=== PATIENT | female | born 1985 ===

== ENCOUNTER 2018-09-26 22:55 | Emergency (ER) | payer SELFPAY ==
[~2018-09-26] VITALS: Ht 149.9 cm; Wt 59.0 kg
--- OUTSIDE RECORDS SUMMARY | 2018-09-26 23:03 | XMS REPORT ---
Author Author ASHLEY ARRINGTON Organization [employer] Address Unknown Phone Unavailable Care Team Providers Care Brick Cleaner Name Role Phone ASHLEY ARRINGTON CP Unavailable Allergies No Known Allergies Problems Problem Type Condition Code Onset Dates Condition Status Assessment Family history of diabetes mellitus (DM) Z83.3 Active Problem Decreased breath sounds at right lung base R09.89 Active Assessment Routine health maintenance Z00.00 Active Assessment Family history of cancer Z80.9 Active Problem Chest pain, unspecified type R07.9 Active Problem Family history of diabetes mellitus (DM) Z83.3 Active Problem Routine health maintenance Z00.00 Active Problem Anxiety F41.9 Active Problem Rash R21 Active Problem Family history of cancer Z80.9 Active Problem Enlarged thyroid E04.9 Active Medications No Known Medications Procedures Procedure Coding System Code Date ASSAY OF INSULIN CPT-4 90623 Jan 15, 2016 ASSAY OF VITAMIN D CPT-4 09069 Jan 15, 2016 ASSAY THYROID STIM HORMONE CPT-4 67270 Jan 15, 2016 VENIPUNCT, ROUTINE* CPT-4 96073 Jan 15, 2016 COMPLETE CBC W/AUTO DIFF WBC CPT-4 26842 Jan 15, 2016 LIPID PANEL CPT-4 18794 Jan 15, 2016 ANTINUCLEAR ANTIBODIES CPT-4 49746 Jan 15, 2016 GLYCATED HEMOGLOBIN TEST CPT-4 71918 Jan 15, 2016 COMPREHEN METABOLIC PANEL CPT-4 43729 Jan 15, 2016 Results No Known Results Summary Purpose [employer] Submission
--- OUTSIDE RECORDS SUMMARY | 2018-09-26 23:03 | XMS REPORT ---
Author Author ARRINGTONASHLEY Broussard Organization [facility] Address [address] [place] [address] Care Team Providers Care Lead Welder Name Role Phone ASHLEY ARRINGTON Unavailable PROBLEMS Type Condition ICD9-CM Code [id number] Code Onset Dates Condition Status SNOMED Code Problem Anxiety F41.9 Active 01498406 Problem Routine health maintenance Z00.00 Active 889639993 Problem Decreased breath sounds at right lung base R09.89 Active 65682601 Problem Family history of diabetes mellitus (DM) Z83.3 Active 744408705 Problem Rash R21 Active 260797364 Problem Other headache syndrome G44.89 Active 203636012 Problem GERD with esophagitis K21.0 Active 912822530 Problem Chest pain, unspecified type R07.9 Active 42679488 Problem Family history of cancer Z80.9 Active 891486802 Problem Rosacea L71.9 Active 927156738 Problem Enlarged thyroid E04.9 Active 3647027 ALLERGIES No Known Allergies ENCOUNTERS Encounter Location Date Diagnosis [facility] [id number] [place] [phone] Aug, Other headache syndrome G44.89 and Stomach pain R10.9 [facility] [id number] [place] [phone] Apr, Atypical chest pain R07.89 and GERD with esophagitis K21.0 [facility] [id number] [place] [phone] Sep, [facility] [id number] [place] [phone] Sep, Rosacea L71.9 [facility] [id number] [place] [phone] Aug, Rash R21 and Rosacea L71.9 [facility] [address] [facility] [id number] [address] Jan, [facility] [id number] [address] Jan, [facility] [id number] [address] Jan, Routine health maintenance Z00.00 ; Family history of diabetes mellitus (DM) Z83.3 and Family history of cancer Z80.9 [facility] [id number] [address] Dec, Routine health maintenance Z00.00 ; Screening for tuberculosis Z11.1 ; Chest pain, unspecified type R07.9 ; Family history of diabetes mellitus (DM) Z83.3 ; Family history of cancer Z80.9 ; Enlarged thyroid E04.9 ; Anxiety F41.9 ; Rash R21 and Decreased breath sounds at right lung base R09.89 [facility] [address] [facility] [id number] [id number] Jan, Dental examination V72.2 IMMUNIZATIONS No Known Immunizations SOCIAL HISTORY Never Assessed REASON FOR VISIT chest discomfort x 2 weeks: occurs with ambulation, sleep and deep breath. Denies cough or congestion mirian talley PLAN OF CARE Activity Details Follow Up prn Reason: VITAL SIGNS Height 4'11" in 2017-05-12 Weight 132.4 lbs 2017-05-12 Temperature 98 degrees Fahrenheit 2017-05-12 Heart Rate 72 bpm 2017-05-12 Respiratory Rate 20 2017-05-12 Oximetry 100 % 2017-05-12 BMI 26.74 kg/m2 2017-05-12 Blood pressure systolic 116 mmHg 2017-05-12 Blood pressure diastolic 68 mmHg 2017-05-12 MEDICATIONS Medication Instructions Dosage Frequency Start Date End Date Duration Status Ibuprofen 200 MG Orally every 6 hrs 1 tablet as needed 6h Not- Taking Omeprazole 20 mg Orally 2 times a day 1 capsule 12h Apr, 30 day (s) Active BusPIRone HCl 10 mg Orally Twice a day 1 tablet 12h Dec, Not -Taking Azithromycin 500 MG Orally Once a day 2 tablets on the first day, then 1 tablet daily for 4 days 24h Dec, Not-Taking Cholecalciferol 46120 UNIT Orally once weekly 1 capsule Jan, Not-Taking Fenofibrate 54 MG Orally Once a day 1 tablet with a meal 24h Jan, Not-Taking Omeprazole 20 mg Orally Once a day 1 capsules 24h Dec, Not- Taking RESULTS No Results PROCEDURES Procedure Date Ordered Result Body Site EKG, TRACING (IN-HOUSE) 2017-05-12 N/A MEASURE BLOOD OXYGEN LEVEL May 12, 2017 ELECTROCARDIOGRAM, TRACING May 12, 2017 INSTRUCTIONS MEDICATIONS ADMINISTERED No Known Medications
--- OUTSIDE RECORDS SUMMARY | 2018-09-26 23:03 | XMS REPORT ---
Author Author ASHLEY ARRINGTON [facility] e[employer] Address Unknown Phone Unavailable Care Team Providers Care Chipper Machine Operator Name Role Phone ASHLEY ARRINGTON CP Unavailable Allergies, Adverse Reactions, Alerts Substance Reaction Event Type N.K.D.A. Info Not Available Non Drug Allergy Problems Problem Type Condition Code Onset Dates Condition Status Assessment Screening for tuberculosis Z11.1 Active Problem Decreased breath sounds at right lung base R09.89 Active Assessment Routine health maintenance Z00.00 Active Problem Chest pain, unspecified type R07.9 Active Problem Family history of diabetes mellitus (DM) Z83.3 Active Problem Routine health maintenance Z00.00 Active Problem Anxiety F41.9 Active Problem Rash R21 Active Problem Family history of cancer Z80.9 Active Problem Enlarged thyroid E04.9 Active Assessment Decreased breath sounds at right lung base R09.89 Active Assessment Enlarged thyroid E04.9 Active Assessment Family history of cancer Z80.9 Active Assessment Rash R21 Active Assessment Family history of diabetes mellitus (DM) Z83.3 Active Assessment Anxiety F41.9 Active Assessment Chest pain, unspecified type R07.9 Active Medications Medication Code System Code Instructions Start Date End Date Status Dosage Ibuprofen [facility] [address]-36 200 MG Orally every 6 hrs 1 tablet as needed BusPIRone HCl [facility] [address]-02 10 mg Orally Twice a day January 12, 2016 1 tablet Omeprazole [facility] [address]-91 20 mg Orally Once a day January 12, 2016 1 capsules Azithromycin [facility] [address]-74 500 MG Orally Once a day January 12, 2016 2 tablets on the first day, then 1 tablet daily for 4 days Metronidazole [facility] [address]-65 0.75 % Externally Once a day January 12, 2016 apply thin layer to face daily at bedtime Procedures Procedure Coding System Code Date IMMUNOASSAY,INFECTIOUS AGENT CPT-4 26704 January 12, 2016 TB INTRADERMAL TEST CPT-4 07779 January 12, 2016 CHEST X-RAY CPT-4 06498 January 12, 2016 ELECTROCARDIOGRAM, TRACING CPT-4 60274 January 12, 2016 Office Visit, Est Pt., Level 4 CPT-4 94140 January 12, 2016 Vital Signs Date/Time: January 12, 2016 Cardiac Monitoring Heart Rate 68 bpm Weight 133.0 lbs Height 4'11" in BMI 26.86 Index Blood Pressure Diastolic 70 mmHg Blood Pressure Systolic 118 mmHg Results No Known Results Summary Purpose eClinicalWorks Submission
--- OUTSIDE RECORDS SUMMARY | 2018-09-26 23:03 | XMS REPORT ---
Author Author ASHLEY ARRINGTON Organization [employer] Address Unknown Phone Unavailable Care Team Providers Care Charge Master Specialist Name Role Phone ASHLEY ARRINGTON CP Unavailable Allergies No Known Allergies Problems Problem Type Condition Code Onset Dates Condition Status Problem Decreased breath sounds at right lung base R09.89 Active Problem Chest pain, unspecified type R07.9 Active Problem Family history of diabetes mellitus (DM) Z83.3 Active Problem Routine health maintenance Z00.00 Active Problem Anxiety F41.9 Active Problem Rash R21 Active Problem Family history of cancer Z80.9 Active Problem Enlarged thyroid E04.9 Active Medications No Known Medications Results No Known Results Summary Purpose [employer]ClinicalWorks Submission
--- OUTSIDE RECORDS SUMMARY | 2018-09-26 23:03 | XMS REPORT ---
Author Author BENEDICT GOODRICH Organization [employer] Address Unknown Phone Unavailable Care Team Providers Care Designer And Patternmaker Name Role Phone BENEDICT GOODRICH CP Unavailable Allergies No Known Allergies Problems Problem Type Condition ICD-9 Code Onset Dates Condition Status Assessment Dental examination V72.2 Active Medications No Known Medications Procedures Procedure Coding System Code Date INTRAORL-PERIAPICAL 1 FILM 73431 CPT-4 D0220 Feb 07, 2015 BITEWING - SINGLE FILM CPT-4 D0270 Feb 07, 2015 LTD ORAL EVALUATION - PROBLEM FOCUS CPT-4 D0140 Feb 07, 2015 EXTRAC ERUPTED TOOTH/EXPOSED ROOT CPT-4 D7140 Feb 07, 2015 Results No Known Results Summary Purpose [employer]Works Submission
--- OUTSIDE RECORDS SUMMARY | 2018-09-26 23:03 | XMS REPORT ---
Author Author ASHLEY ARRINGTON Organization [employer] Address Unknown Phone Unavailable Care Team Providers Care High Scaler Name Role Phone ASHLEY ARRINGTON CP Unavailable [...] Active Problem Enlarged thyroid E04.9 Active Medications Medication Code System Code Instructions Start Date End Date Status Dosage Fenofibrate [facility] [address]-40 54 MG Orally Once a day Jan 22, 2016 1 tablet with a meal Cholecalciferol [facility] [address]95 UNIT Orally once weekly Jan 22, 2016 1 capsule Results No Known Results Summary Purpose [employer]ClinicalWorks Submission
--- OUTSIDE RECORDS SUMMARY | 2018-09-26 23:03 | XMS REPORT ---
Author Author GILDARDO MEEK [facility] Address [address] [place] [address] Care Team Providers Care Sole Edge Inker Machine Name Role Phone GILDARDO MEEK Unavailable PROBLEMS Type Condition ICD9-CM Code BES96-TH Code Onset Dates Condition Status SNOMED Code Problem Anxiety F41.9 Active 63927036 Problem Routine health maintenance Z00.00 Active 441993094 Problem Decreased breath sounds at right lung base R09.89 Active 35866951 Problem Family history of diabetes mellitus (DM) Z83.3 Active 206569230 Problem Rash R21 Active 678692210 Problem Other headache syndrome G44.89 Active 787040657 Problem GERD with esophagitis K21.0 Active 117612620 Problem Chest pain, unspecified type R07.9 Active 02826990 Problem Family history of cancer Z80.9 Active 468167293 Problem Rosacea L71.9 Active 834816685 Problem Enlarged thyroid E04.9 Active 4771683 ALLERGIES No Known Allergies ENCOUNTERS Encounter Location Date Diagnosis [facility] [id number] [place] [phone] Aug, Other headache syndrome G44.89 and Stomach pain R10.9 [facility] [id number] [place] [phone] Apr, Atypical chest pain R07.89 and GERD with esophagitis K21.0 [facility] [id number] [place] [phone] Sep, [facility] [address] [address] Sep, Rosacea L71.9 [facility] [id number] [place] [phone] Aug, Rash R21 and Rosacea L71.9 [facility] [id number] [address] Jan, [facility] [id number] [address] Jan, [facility] [id number] [address] Jan, Routine health maintenance Z00.00 ; Family history of diabetes mellitus (DM) Z83.3 and Family history of cancer Z80.9 [facility] [id number] [place] [phone] Dec, Routine health maintenance Z00.00 ; Screening for tuberculosis Z11.1 ; Chest pain, unspecified type R07.9 ; Family history of diabetes mellitus (DM) Z83.3 ; Family history of cancer Z80.9 ; Enlarged thyroid E04.9 ; Anxiety F41.9 ; Rash R21 and Decreased breath sounds at right lung base R09.89 [facility] [address] [facility] [id number] [id number] Jan, Dental examination V72.2 IMMUNIZATIONS No Known Immunizations SOCIAL HISTORY Never Assessed REASON FOR VISIT headache for 4 months. hasnt seen a physician for this complaint. doesnt have a pcp. also complaining of RUQ pain for 2 weeks that comes and goes. also has some nausea with this pain. last BM was this am and was normal for her. last menstural period was 08/18/2017. denies pain with intercourse. denies dysuria. [email or web address] PLAN OF CARE Activity Details Follow Up keep appointment to establish care Reason: VITAL SIGNS Height 4'11" in 2017-09-05 Weight 130.0 lbs 2017-09-05 Temperature 98.6 degrees Fahrenheit 2017-09-05 Heart Rate 80 bpm 2017-09-05 Respiratory Rate 20 2017-09-05 BMI 26.25 kg/m2 2017-09-05 Blood pressure systolic 118 mmHg 2017-09-05 Blood pressure diastolic 70 mmHg 2017-09-05 MEDICATIONS Medication Instructions Dosage Frequency Start Date End Date Duration Status Ibuprofen 200 MG Orally every 6 hrs 1 tablet as needed 6h Active Omeprazole 20 mg Orally 2 times a day 1 capsule 12h Apr, 30 day (s) Not-Taking BusPIRone HCl 10 mg Orally Twice a day 1 tablet 12h Dec, Not -Taking Azithromycin 500 MG Orally Once a day 2 tablets on the first day, then 1 tablet daily for 4 days 24h Dec, Not-Taking Fenofibrate 54 MG Orally Once a day 1 tablet with a meal 24h Jan, Not-Taking Cholecalciferol 18362 UNIT Orally once weekly 1 capsule Jan, Not-Taking Omeprazole 20 mg Orally Once a day 1 capsules 24h Dec, Not- Taking RESULTS No Results PROCEDURES No Known procedures INSTRUCTIONS MEDICATIONS ADMINISTERED No Known Medications
--- OUTSIDE RECORDS SUMMARY | 2018-09-26 23:03 | XMS REPORT | Continuity of Care Document ---
Author Organization Unknown Address Unknown Allergies There is no data. Medications There is no data. Problems There is no data. Procedures There is no data. Results Test Result Range SUREPATH PAP AND HPV mRNA E6/E7 - 09/15/18 17:03 CLINICAL INFORMATION: NRG LMP: NRG PREV. PAP: NRG PREV. BX: NRG SOURCE: Cervix NRG STATEMENT OF ADEQUACY: NRG INTERPRETATION/RESULT: NRG JAI ALAI PLAYER: NRG HPV mRNA E6/E7, SUREPATH VIAL Not Detected NOT DETECTED COMMENT NRG CULTURE, URINE - 09/15/18 17:03 CULTURE, URINE, ROUTINE SEE NOTE NRG CULTURE, GENITAL - 09/15/18 17:03 CULTURE, GENITAL SEE NOTE NRG Encounters ACCT No. Visit Date/Time Discharge Status Pt. Type Provider Facility Loc./Unit Complaint [id number] 09/25/2018 17:30:00 [facility] Outpatient [facility] [id number] 09/15/2018 16:40:00 Document Registration
--- OUTSIDE RECORDS SUMMARY | 2018-09-26 23:03 | XMS REPORT ---
Author Author MURPHYHARSHASHLEY Organization [facility] Address [address] [place] [address] Care Team Providers Care Cause Analyst Name Role Phone ARRINGTONASHLEY Broussard Unavailable PROBLEMS Type Condition ICD9-CM Code POR06-CH Code Onset Dates Condition Status SNOMED Code Problem Family history of diabetes mellitus (DM) Z83.3 Active 948872070 Problem Anxiety F41.9 Active 32200191 Problem Rash R21 Active 003766941 Problem Rosacea L71.9 Active 513364608 Problem Enlarged thyroid E04.9 Active 8465961 Problem Routine health maintenance Z00.00 Active 725082581 Problem Decreased breath sounds at right lung base R09.89 Active 02547211 Problem Chest pain, unspecified type R07.9 Active 49501084 Problem Family history of cancer Z80.9 Active 603821355 ALLERGIES No Known Allergies SOCIAL HISTORY Never Assessed PLAN OF CARE Activity Details Follow Up 4 Weeks Reason:f/u rash VITAL SIGNS Height 4'11" in 2016-08-15 Weight 130.0 lbs 2016-08-15 Temperature 98.7 degrees Fahrenheit 2016-08-15 Heart Rate 72 bpm 2016-08-15 Respiratory Rate 18 2016-08-15 BMI 26.25 kg/m2 2016-08-15 Blood pressure systolic 110 mmHg 2016-08-15 Blood pressure diastolic 76 mmHg 2016-08-15 MEDICATIONS Medication Instructions Dosage Frequency Start Date End Date Duration Status Metronidazole 0.75 % Externally Once a day apply thin layer to face daily at bedtime 24h Dec, Aug, 14 days Active RESULTS No Results PROCEDURES No Known procedures IMMUNIZATIONS No Known Immunizations
[2018-09-26 23:24] LABS: BILIRUBIN,URINE 1+ (NEGATIVE); CLARITY,URINE CLEAR; COLOR,URINE YELLOW; GLUCOSE, URINE (UA) NEGATIVE (NEGATIVE); KETONES,URINE 4+ (NEGATIVE); LEUKOCYTE ESTERASE ,URINE 1+ (NEGATIVE); NITRITE,URINE NEGATIVE (NEGATIVE); PH,URINE 7 (5-9); PROTEIN,URINE 1+ (NEGATIVE); UROBILINOGEN,URINE 8 MG/DL (NORMAL)
[2018-09-26] MEDS ORDERED: LIDOCAINE 2% VISCOUS 15 ML UDC PO ONE (23:30)
[2018-09-26] MEDS ORDERED: FAMOTIDINE 20 MG (PEPCID) TABLET PO STA (23:30)
[2018-09-26] MEDS ORDERED: ANTACID SUSP 30 ML UDC (MYLANTA) PO ONE (23:30)
[2018-09-26] MEDS ORDERED: ONDANSETRON 4 MG (ZOFRAN) ORAL DISSOLVE TAB PO ONE (23:30)
--- NOTE | 2018-09-26 23:35 | ED Abdominal Pain ---
General Chief Complaint: Abdominal/GI Problems Stated Complaint: ABD PAIN, N/V, POSS Nursing Triage Note: lower abdominal pain x5 days, nausea x2 weeks Sepsis Screen: No Definite Risk Source of Information: Patient, Family Exam Limitations: Language Barrier (Arabic as a second language. Language line used.) History of Present Illness Date Seen by Provider: Sep 26, 2018 Time Seen by Provider: 23:24 Initial Comments Patient presents to ER by private conveyance with her family and chief complaint of tonight having some burning abdominal pain in her epigastric region as well as some pain in her suprapubic region. She says she had a urinalysis done on , 2 days ago and was told she was no longer but she did not have a UTI. Some nausea vomiting today. Patient states her last menstrual period was July 13 which would put her at 10 weeks and 5 days. She is a as her bedside urine here in the ER is positive. She says they did draw blood on . She has no history of abdominal surgeries. No history of trauma. No diarrhea, constipation. She has not vomited today just had some spitting up. No significant medical problems nor does she take any medicines routinely. Allergies and Home Medications Allergies Coded Allergies: No Known Drug Allergies (Unverified , 09/26/18) Home Medications No Active Prescriptions or Reported Meds Patient Home Medication List Home Medication List Reviewed: Yes Review of Systems Review of Systems Constitutional: No chills, No fever, No malaise EENTM: No Blurred Vision, No Double Vision Respiratory: Denies Cough, Denies Shortness of Air Cardiovascular: Denies Chest Pain, Denies Edema Gastrointestinal: See HPI; Denies Abdomen Distended; Abdominal Pain; Denies Constipated, Denies Diarrhea; Nausea; Denies Poor Fluid Intake, Denies Vomiting Genitourinary: Denies Burning, Denies Discharge Musculoskeletal: No back pain, No joint pain Skin: No pruritus, No rash Past Sqcdsck-Rdavrz-Vrjcue Hx Patient Social History Alcohol Use: Denies Use Recreational Drug Use: No Smoking Status: Never a Smoker 2nd Hand Smoke Exposure: No Recent Foreign Travel: No Contact w/Someone Who Travel: No Recent Infectious Disease Expo: No Recent Hopitalizations: No Immunizations Up To Date Tetanus Booster (TDap): Unknown Seasonal Allergies Seasonal Allergies: No Past Medical History Surgeries: No Respiratory: No Cardiac: No Neurological: No Last Menstrual Period: Jul 13, 2018 Genitourinary: No Gastrointestinal: No Musculoskeletal: No Endocrine: No HEENT: No Cancer: No Psychosocial: No Integumentary: No Blood Disorders: No Physical Exam Vital Signs Vital Signs - First Documented 09/26/18 23:05 Temp 98.8 Pulse 86 Resp 16 B/P (MAP) 111/84 (93) Pulse Ox 99 O2 Delivery Room Air Capillary Refill : Less Than 3 Seconds Height/Weight/BMI Height: 4'11.00" Weight: 130lbs. oz. 58.535599ua; BMI Method:Stated General Appearance: WD/WN, no apparent distress HEENT: PERRL/EOMI, pharynx normal Respiratory: lungs clear, normal breath sounds, no respiratory distress, no accessory muscle use Cardiovascular: normal peripheral pulses, regular rate, rhythm, no edema Peripheral Pulses: 2+ Radial Pulses (R), 2+ Radial Pulses (L) Gastrointestinal: normal bowel sounds, non tender, soft, no organomegaly Extremities: non-tender, normal inspection, no pedal edema Neurologic/Psychiatric: alert, oriented x 3 Skin: normal color, warm/dry Progress/Results/Core Measures Results/Orders Lab Results Laboratory Tests Test 09/26/18 23:10 09/26/18 23:44 Range/Units Urine Color YELLOW Urine Clarity CLEAR Urine pH 7 5-9 Urine Specific [place] 1.015 L 1.016-1.022 Urine Protein 1+ H NEGATIVE Urine Glucose (UA) NEGATIVE NEGATIVE Urine Ketones 4+ H NEGATIVE Urine Nitrite NEGATIVE NEGATIVE Urine Bilirubin 1+ H NEGATIVE Urine Urobilinogen 8 H NORMAL MG/DL Urine Leukocyte Esterase 1+ H NEGATIVE Urine RBC (Auto) NEGATIVE NEGATIVE Urine RBC NONE /HPF Urine WBC 5-10 H /HPF Urine Squamous Epithelial Cells 5-10 /HPF Urine Crystals PRESENT H /LPF Urine Amorphous Sediment FEW ODETTE URATES H /LPF Urine Bacteria MODERATE H /HPF Urine Casts NONE /LPF Urine Mucus LARGE H /LPF Urine Culture Indicated YES White Blood Count 8.9 4.3-11.0 10^3/uL Red Blood Count 4.32 L 4.35-5.85 10^6/uL Hemoglobin 13.4 11.5-16.0 G/DL Hematocrit 38 35-52 % Mean Corpuscular Volume 88 80-99 FL Mean Corpuscular Hemoglobin 31 25-34 PG Mean Corpuscular Hemoglobin Concent 35 32-36 G/DL Red Cell Distribution Width 12.2 10.0-14.5 % Platelet Count 203 130-400 10^3/uL Mean Platelet Volume 10.6 H 7.4-10.4 FL Neutrophils (%) (Auto) 76 H 42-75 % Lymphocytes (%) (Auto) 18 12-44 % Monocytes (%) (Auto) 6 0-12 % Eosinophils (%) (Auto) 0 0-10 % Basophils (%) (Auto) 0 0-10 % Neutrophils # (Auto) 6.7 1.8-7.8 X 10^3 Lymphocytes # (Auto) 1.6 1.0-4.0 X 10^3 Monocytes # (Auto) 0.6 0.0-1.0 X 10^3 Eosinophils # (Auto) 0.0 0.0-0.3 10^3/uL Basophils # (Auto) 0.0 0.0-0.1 10^3/uL Sodium Level 140 135-145 MMOL/L Potassium Level 3.5 L 3.6-5.0 MMOL/L Chloride Level 107 98-107 MMOL/L Carbon Dioxide Level 21 21-32 MMOL/L Anion Gap 12 5-14 MMOL/L Blood Urea Nitrogen 12 7-18 MG/DL Creatinine 0.65 0.60-1.30 MG/DL Estimat Glomerular Filtration Rate > 60 BUN/Creatinine Ratio 18 Glucose Level 88 70-105 MG/DL Calcium Level 9.6 8.5-10.1 MG/DL Corrected Calcium 9.4 8.5-10.1 MG/DL Total Bilirubin 0.5 0.1-1.0 MG/DL Aspartate Amino Transf (AST/SGOT) 14 5-34 U/L Alanine Aminotransferase (ALT/SGPT) 18 0-55 U/L Alkaline Phosphatase 45 40-136 U/L Total Protein 7.3 6.4-8.2 GM/DL Albumin 4.3 3.2-4.5 GM/DL Lipase 34 8-78 U/L Human Chorionic Gonadotropin, Quant [id number] H <5 MIU/ML My Orders Orders - JAYA CARMEN Ua Culture If Indicated (09/26/18 22:56) Urine Bedside (09/26/18 22:56) Ondansetron Oral Dissolve Tab (Zofran (4/13/19 23:30) Lidocaine 2% Viscous 15 Ml (Xylocaine Vi (09/26/18 23:30) Famotidine Tablet (Pepcid Tablet) (09/26/18 23:30) Antacid Suspension (Mylanta Suspension (09/26/18 23:30) Cbc With Automated Diff (09/26/18 23:30) Comprehensive Metabolic Panel (09/26/18 23:30) Hcg,Quantitative (09/26/18 23:30) Lipase (09/26/18 23:36) Urine Culture (09/26/18 23:10) Medications Given in ED Current Medications Medications Dose Ordered Sig/Gabriele Route Start Time Stop Time Status Last Admin Dose Admin Al Hydrox/Mg Hydrox/Simethicone 30 ml ONCE ONCE PO 09/26/18 23:30 09/26/18 23:31 DC 09/26/18 23:40 30 ML Lidocaine HCl 15 ml ONCE ONCE PO 09/26/18 23:30 09/26/18 23:31 DC 09/26/18 23:40 15 ML Ondansetron HCl 4 mg ONCE ONCE PO 09/26/18 23:30 09/26/18 23:31 DC 09/26/18 23:40 4 MG Vital Signs/I&O 09/26/18 23:05 Temp 98.8 Pulse 86 Resp 16 B/P (MAP) 111/84 (93) Pulse Ox 99 O2 Delivery Room Air Blood Pressure Mean: 93 Progress Progress Note #1: Time: 23:35 Progress Note If she's had blood drawn on we'll repeat an hCG quantitative today which I assume was done in the clinic and her primary care doctor can follow this up. We will give her some Zofran for her nausea and once that subsided we' ll get a GI cocktail for the burning sensation in her epigastric region. We will check a lipase CBC and CMP at the same time. Progress Note #2: Time: 01:01 Progress Note The patient's epigastric pain went away with a GI cocktail. I suspect that her suprapubic pain is due to her likely bladder infection. Despite the contaminants we are going to put her on Macrobid. Departure Impression Primary Impression: Qualified Codes: Z3A.10 - 10 weeks gestation of Additional Impressions: Urinary tract infection Qualified Codes: N30.00 - Acute cystitis without hematuria GERD (gastroesophageal reflux disease) Qualified Codes: K21.9 - Gastro-esophageal reflux disease without esophagitis Disposition: HOME, SELF-CARE Condition: Improved Departure-Patient Inst. Decision time for Depature: 01:04 Referrals: [facility] (PCP/Family) Primary Care Physician Patient Instructions: Acid Reflux (Gastroesophageal Reflux Disease) During , Urinary Tract Infection, Adult (DC) Add. Discharge Instructions: Drink lots of fluids and merchandise pickup/receiving associate the Macrobid take one capsule twice a day for the next 7 days. If you have burning sensation in your stomach even use Mylanta, Tums, Rolaids or Pepcid/Zantac as necessary. All discharge instructions reviewed with patient and/or family. Voiced understanding. Scripts Nitrofurantoin Monohyd/M-Cryst (Macrobid 100 mg Capsule) 100 Mg Capsule 1 TAB PO BID for 7 Days, #13 CAP 0 Refills Prov: JAYA CARMEN 09/27/18 Copy Copies To 1: EMELY PERRY DO JAYA CARMEN Sep 26, 2018 23:35
[2018-09-26 23:38] LABS: BACTERIA,URINE MODERATE /HPF
[2018-09-26 23:39] LABS: AMORPHOUS SEDIMENT,UR FEW AMOR URATES /LPF
[2018-09-26 23:52] LABS: BASOPHILS % (AUTO) 0 % (0-10); EOSINOPHILS % (AUTO) 0 % (0-10); HEMATOCRIT 38 % (35-52); HEMOGLOBIN 13.4 G/DL (11.5-16.0); LYMPHOCYTES # (AUTO) 1.6 X 10^3 (1.0-4.0); LYMPHOCYTES % (AUTO) 18 % (12-44); MEAN CORPUSCULAR HEMOGLOBIN 31 PG (25-34); MEAN CORPUSCULAR HGB CONC 35 G/DL (32-36); MEAN CORPUSCULAR VOLUME 88 FL (80-99); MEAN PLATELET VOLUME 10.6 FL (7.4-10.4); MONOCYTES # (AUTO) 0.6 X 10^3 (0.0-1.0); MONOCYTES % (AUTO) 6 % (0-12); NEUTROPHILS # (AUTO) 6.7 X 10^3 (1.8-7.8); NEUTROPHILS % (AUTO) 76 % (42-75); PLATELET COUNT 203 10^3/uL (130-400); RED CELL DISTRIBUTION WIDTH 12.2 % (10.0-14.5); WHITE BLOOD COUNT 8.9 10^3/uL (4.3-11.0)
[2018-09-27 00:17] LABS: ALANINE AMINOTRANSFERASE 18 U/L (0-55); ALBUMIN 4.3 GM/DL (3.2-4.5); ALKALINE PHOSPHATASE 45 U/L (40-136); BILIRUBIN,TOTAL 0.5 MG/DL (0.1-1.0); BUN/CREATININE RATIO 18; CALCIUM 9.6 MG/DL (8.5-10.1); CARBON DIOXIDE 21 MMOL/L (21-32); CHLORIDE 107 MMOL/L (98-107); CREATININE SERUM 0.65 MG/DL (0.60-1.30); GFR ESTIMATED > 60; GLUCOSE 88 MG/DL (70-105); LIPASE 34 U/L (8-78); POTASSIUM 3.5 MMOL/L (3.6-5.0); SODIUM 140 MMOL/L (135-145); TOTAL PROTEIN 7.3 GM/DL (6.4-8.2)
[2018-09-27 01:05] VITALS: BP 115/79
[2018-09-27] MEDS ORDERED: NITR-65 PO (01:05)
== END 2018-09-27 01:09 | disposition home or self-care (01) ==
LOC: ER 22:59
DX: O23.41 Unspecified infection of urinary tract in pregnancy, first trimester (principal); O99.611 Diseases of the digestive system complicating pregnancy, first trimester; K21.9 Gastro-esophageal reflux disease without esophagitis; Z3A.10 10 weeks gestation of pregnancy
CPT/HCPCS: 36415; 80053; 81000; 83690; 84702; 84703; 85025; 87088

== ENCOUNTER 2021-01-05 13:01 | Emergency (ER) | payer SELFPAY ==
[~2021-01-05] VITALS: Ht 152.4 cm; Wt 57.3 kg
[~2021-01-05 13:01] MED LIST: NITR-65 PO
[2021-01-05] MEDS ORDERED: NS IV 1000 ML 1,000 ML ONE (15:27)
[2021-01-05] MEDS ORDERED: KETOROLAC 30 MG/ML VIAL ONE (15:27)
[2021-01-05] MEDS ORDERED: RT-ALBUTEROL INHALER HFA (VENTOLIN HFA) 18 GM IH ONE (15:27)
[2021-01-05] MEDS ORDERED: KETOROLAC 30 MG/ML VIAL IVP STA (15:43)
--- NOTE | 2021-01-05 15:50 | ED Cough/URI ---
General Chief Complaint: Cough/Cold/Flu Symptoms Stated Complaint: SOB;CP;COUGH History of Present Illness Date Seen by Provider: Jan 05, 2021 Time Seen by Provider: 14:40 Initial Comments 35-year-old [place] patient presents for shortness of breath with associated chest pain that has been present for approximately 4 days. She is not know of any COVID exposure, however she has not received her vaccines. She reports a fever in the first few days but did not have a thermometer. She has not taken any medication for her symptoms for at least 2 days. She was taking Tylenol and ibuprofen when she felt hot. She does not know of any family members with similar symptoms. She is Faroese speaking and translation line used for visit. Timing/Duration: getting worse Severity/Quality: moderate, productive cough Associated Symptoms: chest pain/soreness, cough, nasal congestion, shortness of breath Allergies and Home Medications Allergies Coded Allergies: No Known Drug Allergies (Unverified , 09/26/18) Home Medications Dexamethasone 6 Mg Tablet, 6 MG PO DAILY Prescribed by: JOSE PEÑALOZA on 01/05/21 1737 Nitrofurantoin Monohyd/M-Cryst 100 Mg Capsule, 1 TAB PO BID Prescribed by: JAYA CARMEN on 09/27/18 0105 Patient Home Medication List Home Medication List Reviewed: Yes Review of Systems Review of Systems Constitutional: see HPI, malaise EENTM: see HPI, no symptoms reported Respiratory: see HPI, cough, dyspnea on exertion, short of breath Cardiovascular: see HPI, chest pain (Pain with deep inspiration, for 3 days) Gastrointestinal: see HPI; No abdominal pain, No diarrhea; loss of appetite; No nausea, No vomiting Genitourinary: no symptoms reported, see HPI : No LMP: Jan 03, 2021 All Other Systems Reviewed Negative Unless Noted: Yes Past Rayhccv-Sexrio-Zbrapn Hx Patient Social History Tobacco Use?: Yes Immunizations Up To Date Tetanus Booster (TDap): Unknown Seasonal Allergies Seasonal Allergies: No Past Medical History Surgeries: No Respiratory: No Cardiac: No Neurological: No Genitourinary: No Gastrointestinal: No Musculoskeletal: No Endocrine: No HEENT: No Cancer: No Psychosocial: No Integumentary: No Blood Disorders: No Family Medical History Reviewed Nursing Family Hx Physical Exam Vital Signs - First Documented 01/05/21 01/05/21 14:39 15:05 Temp 36.4 Pulse 65 Resp 20 B/P (MAP) 98/65 (76) Pulse Ox 99 O2 Delivery Room Air Capillary Refill : Less Than 3 Seconds Height: 4'11.00" Weight: 130lbs. oz. 58.042473ld; BMI Method:Stated General Appearance: WD/WN, mild distress HEENT: PERRL/EOMI, normal ENT inspection, TMs normal, pharynx normal, other (oral mucosa pink and moist) Neck: non-tender, full range of motion, supple, normal inspection Respiratory: chest non-tender, lungs clear, normal breath sounds, decreased sobia ath sounds; No rhonchi, No wheezing Cardiovascular: normal peripheral pulses, regular rate, rhythm Gastrointestinal: normal bowel sounds, non tender, soft Extremities: normal range of motion, non-tender, normal inspection Neurologic/Psychiatric: no motor/sensory deficits, alert, normal mood/affect, oriented x 3 Skin: normal color, warm/dry Progress/Results/Core Measures Suspected Sepsis SIRS Temperature: Pulse: Respiratory Rate: Laboratory Tests 01/05/21 15:20: White Blood Count 9.8 Blood Pressure / Mean: 76 Laboratory Tests 01/05/21 15:20: Creatinine 0.63, Platelet Count 257, Total Bilirubin 0.6 Results/Orders Lab Results Laboratory Tests Test 01/05/21 14:29 01/05/21 15:20 01/05/21 15:40 Range/Units Influenza Type A (RT-PCR) Not Detected Not Detecte Influenza Type B (RT-PCR) Not Detected Not Detecte SARS-CoV-2 RNA (RT-PCR) Detected H Not Detecte White Blood Count 9.8 4.3-11.0 10^3/uL Red Blood Count 4.53 3.80-5.11 10^6/uL Hemoglobin 14.0 11.5-16.0 g/dL Hematocrit 41 35-52 % Mean Corpuscular Volume 91 80-99 fL Mean Corpuscular Hemoglobin 31 25-34 pg Mean Corpuscular Hemoglobin Concent 34 32-36 g/dL Red Cell Distribution Width 11.9 10.0-14.5 % Platelet Count 257 130-400 10^3/uL Mean Platelet Volume 10.1 9.0-12.2 fL Immature Granulocyte % (Auto) 1 % Neutrophils (%) (Auto) 83 H 42-75 % Lymphocytes (%) (Auto) 8 L 12-44 % Monocytes (%) (Auto) 7 0-12 % Eosinophils (%) (Auto) 0 0-10 % Basophils (%) (Auto) 0 0-10 % Neutrophils # (Auto) 8.2 H 1.8-7.8 X 10^3 Lymphocytes # (Auto) 0.8 L 1.0-4.0 X 10^3 Monocytes # (Auto) 0.7 0.0-1.0 X 10^3 Eosinophils # (Auto) 0.0 0.0-0.3 10^3/uL Basophils # (Auto) 0.0 0.0-0.1 10^3/uL Immature Granulocyte # (Auto) 0.1 0.0-0.1 10^3/uL Neutrophils % (Manual) 77 % Lymphocytes % (Manual) 7 % Monocytes % (Manual) 8 % Eosinophils % (Manual) 0 % Basophils % (Manual) 0 % Band Neutrophils 6 % Reactive Lymphocytes 2 % Blood Morphology Comment NORMAL Erythrocyte Sedimentation Rate 64 H 0-20 MM/HR D-Dimer 1.27 H 0.00-0.49 UG/ML Sodium Level 142 135-145 MMOL/L Potassium Level 3.6 3.6-5.0 MMOL/L Chloride Level 105 98-107 MMOL/L Carbon Dioxide Level 23 21-32 MMOL/L Anion Gap 14 5-14 MMOL/L Blood Urea Nitrogen 16 7-18 MG/DL Creatinine 0.63 0.60-1.30 MG/DL Estimat Glomerular Filtration Rate 108 BUN/Creatinine Ratio 25 Glucose Level 100 70-105 MG/DL Calcium Level 8.6 8.5-10.1 MG/DL Corrected Calcium 8.6 8.5-10.1 MG/DL Total Bilirubin 0.6 0.1-1.0 MG/DL Aspartate Amino Transf (AST/SGOT) 39 H 5-34 U/L Alanine Aminotransferase (ALT/SGPT) 60 H 0-55 U/L Alkaline Phosphatase 64 40-136 U/L Lactate Dehydrogenase 440 H 125-220 U/L C-Reactive Protein High Sensitivity 11.06 H 0.00-0.50 MG/DL Total Protein 8.1 6.4-8.2 GM/DL Albumin 4.0 3.2-4.5 GM/DL Procalcitonin 0.04 <0.10 NG/ML Urine Color DARK YELLOW Urine Clarity SL CLOUDY Urine pH 6.0 5-9 Urine Specific [place] 1.025 H 1.016-1.022 Urine Protein 1+ H NEGATIVE Urine Glucose (UA) NEGATIVE NEGATIVE Urine Ketones 2+ H NEGATIVE Urine Nitrite NEGATIVE NEGATIVE Urine Bilirubin 2+ H NEGATIVE Urine Urobilinogen >=8.0 < = 1.0 MG/DL Urine Leukocyte Esterase 1+ H NEGATIVE Urine RBC (Auto) 3+ H NEGATIVE Urine RBC 2-5 H /HPF Urine WBC 0-2 /HPF Urine Squamous Epithelial Cells 5-10 /HPF Urine Crystals NONE /LPF Urine Bacteria FEW H /HPF Urine Casts NONE /LPF Urine Mucus MODERATE H /LPF Urine Culture Indicated NO Urine Test NEGATIVE NEGATIVE My Orders Orders - JOSE PEÑALOZA 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[employer] Influenza A And B By Pcr (01/05/21 14:28) Covid 19 Inhouse Test (01/05/21 14:28) Ketorolac Injection (Toradol Injection) (01/05/21 15:27) Albuterol Inhaler (Ventolin Hfa) (01/05/21 15:27) Ns Iv 1000 Ml (Sodium Chloride 0.9%) (01/05/21 15:27) Cbc With Automated Diff (01/05/21 15:42) Comprehensive Metabolic Panel (01/05/21 15:42) Fibrin Degradation Products (01/05/21 15:42) Procalcitonin (Pct) (01/05/21 15:42) Hs C Reactive Protein (01/05/21 15:42) Erythrocyte Sedimentation Rate (01/05/21 15:42) LDH (01/05/21 15:42) Ekg Tracing (01/05/21 15:42) Chest 1 View, Ap/Pa Only (01/05/21 15:42) Hcg,Qualitative Urine (01/05/21 15:43) Ua Culture If Indicated (01/05/21 15:43) Ketorolac Injection (Toradol Injection) (01/05/21 15:43) Manual Differential (01/05/21 15:20) Ed Iv/Invasive Line Start (01/05/21 16:17) Ns Iv 1000 Ml (Sodium Chloride 0.9%) (01/05/21 16:30) Ct Angio Chest W (01/05/21 16:36) Iohexol Injection (Omnipaque 350 Mg/Ml 1 (01/05/21 16:45) Received Contrast (Hold Metformin- Contr (01/05/21 16:45) Ns (Ivpb) (Sodium Chloride 0.9% Ivpb Bag (01/05/21 16:45) Dexamethasone Injection (Decadron Inje (01/05/21 17:45) Dexamethasone Injection (Decadron Inje (01/05/21 17:51) Medications Given in ED Current Medications Medications Dose Ordered Sig/Gabriele Route Start Time Stop Time Status Last Admin Dose Admin Albuterol Sulfate 18 gm STK-MED ONCE IH 01/05/21 15:27 01/05/21 15:29 DC 01/05/21 15:32 18 GM Dexamethasone Sodium Phosphate 10 mg ONCE ONCE IV 01/05/21 17:45 01/05/21 17:58 DC 01/05/21 17:53 6 MG Iohexol 100 ml ONCE ONCE IV 01/05/21 16:45 01/05/21 16:46 DC 01/05/21 17:06 62 ML Ketorolac Tromethamine 30 mg STK-MED ONCE .ROUTE 01/05/21 15:27 01/05/21 15:29 DC 01/05/21 15:33 30 MG Sodium Chloride 100 ml ONCE ONCE IV 01/05/21 16:45 01/05/21 16:46 DC 01/05/21 17:06 80 ML Sodium Chloride 1,000 ml @ ud STK-MED ONCE .ROUTE 01/05/21 15:27 01/05/21 15:29 DC 01/05/21 15:33 1,000 MLS/HR Vital Signs/I&O 01/05/21 01/05/21 14:39 15:05 Temp 36.4 36.0 Pulse 65 84 Resp 20 18 B/P (MAP) 98/65 (76) 103/73 (83) Pulse Ox 99 96 O2 Delivery Room Air Capillary Refill : Less Than 3 Seconds Blood Pressure Mean: 76 Progress Note : Time: 14:40 Progress Note Patient seen and evaluated, SaO2 94 to 98% on room air, applied O2 at 1 L per nasal cannula and maintained 97% or higher. Will obtain labs, chest x-ray, Covid swab positive, chest x-ray, IV fluids normal saline 1 L. Will give Toradol 30 mg IV for pain. Gave Ventolin HFA 2 puffs with spacer. 1500 COVID +, explained to patient. SaO2 improved on RA, maintaining 98% or >. 1545 patient reports pain has resolved, easier to take deep breath. VS stable. Lab shows elevated d-dime, will obtain Chest CT angio for PE. Will give 2nd liter of NS, based on UA ketones 2+ 1615 CT angio neg for PE. Will give Decadron 6 mg IV. 1645 patient reports improvement in her symptoms. Discharge instructions, return precautions, isolation and family quarantine discussed via translation line. All questions answered. Contacted patient's family and they will pick her up. She has urinated 2 times, since presenting. No dyspnea, continues to be afebrile. ECG Initial ECG Impression Date: Jan 05, 2021 Initial ECG Impression Time: 15:28 Initial ECG Rate: 80 Initial ECG Rhythm: Normal Sinus Initial ECG Intervals: Normal Initial ECG Intervals CT 123, QRSD 81, QT 373, QTc 431. [place]: P 7; QRS 23; T 14 Initial ECG Impression: Normal Initial ECG Comparisson: No Previous ECG Available Diagnostic Imaging Diagonstic Imaging: CT Plain Films/CT/US/NM/MRI: chest Comments NAME: SHAYE MESA [facility] REC#: [id number] PT STATUS: REG ER : 1985 PHYSICIAN: JOSE PEÑALOZA ADMIT DATE: 01/05/21/ER Signed Date of Exam:01/05/21 CT ANGIO CHEST W EXAMINATION: CT angiography of the chest. TECHNIQUE: Contrast enhanced thin section helical images were obtained through the chest with intravenous contrast timed for the optimal opacification of the arterial structures per CTA protocol. Post-processing, reconstructions and interpretation of angiographic images of the vessels was performed. 3D MIP reconstructions were performed and reviewed. All CT scans use one or more of the following dose optimizing techniques: automated exposure control, MA and/or KvP adjustment based on a patient size and exam type, or iterative reconstruction. HISTORY: Covid positive, shortness of breath and chest pain COMPARISON: Chest radiograph 01/05/2021 FINDINGS: Vascular: There are no filling defects seen within the pulmonary arteries. The thoracic aorta is normal in caliber. Thyroid: The thyroid is normal. Mediastinum: Heart size is normal without significant pericardial effusion. No suspicious lymphadenopathy. Lungs and airways: There are patchy groundglass opacities and consolidation throughout both lungs. No pleural effusion or pneumothorax. The airways are normal. Upper abdomen: The subphrenic structures are normal. Musculoskeletal: No suspicious osseous lesion or compression fracture. IMPRESSION: 1. No findings of pulmonary embolus. 2. Patchy groundglass consolidation throughout both lungs compatible with history of Covid 19 and pneumonia. Dictated by: Dictated on workstation # [id number] Dict: 01/05/211704 Trans: 01/05/211717 [facility] [id number] Interpreted by: CHRIS CHAU DO Electronically signed by: CHRIS CHAU DO 01/05/211717 Diagonstic Imaging: Xray Plain Films/CT/US/NM/MRI: chest Comments NAME: SHAYE MESA [facility] REC#: [id number] PT STATUS: REG ER : 1985 PHYSICIAN: JOSE PEÑALOZA ADMIT DATE: 01/05/21/ER Signed Date of Exam:01/05/21 CHEST 1 VIEW, AP/PA ONLY HISTORY: Covid positive, shortness of breath TECHNIQUE: Frontal view of the chest COMPARISON: None FINDINGS: Lung volumes are mildly low. Patchy airspace opacities are seen throughout the lungs bilaterally, with relative sparing of the apices. There is no pleural effusion or pneumothorax. The cardiac silhouette is normal in size. IMPRESSION: 1. Patchy airspace opacities throughout the lungs bilaterally, consistent with infection. Dictated by: Dictated on workstation # [id number] Dict: 01/05/21 1634 Trans: 01/05/211706 [facility] [id number] Interpreted by: DIPAK NUNEZ MD Electronically signed by: DIPAK NUNEZ MD 01/05/211706 Reviewed: Reviewed by Me Departure Impression Primary Impression: COVID-19 Additional Impression: Dyspnea Qualified Codes: R06.00 - Dyspnea, unspecified Disposition: 01 HOME, SELF-CARE Condition: Stable Departure-Patient Inst. Decision time for Depature: 16:45 Referrals: [facility] (PCP/Family) Primary Care Physician Patient Instructions: Cough, Adult (DC), COVID-19 (DC) Add. Discharge Instructions: Take Aspirin 81 mg, one daily. Use inhaler, 2 puffs every 4 hours. Alternate between Tylenol 650 mg and ibuprofen 600 mg every 4 hours for pain or fever. Sleep on your stomach. Increase water intake, 16 oz bottle every 2 hours. Take an Immune Vitamin, daily. Push fluids and food, get up and walk around 5-10 min every hour, while awake. Isolate yourself from other family members, warn close contacts of exposure, so they can quarantine. Call your family doctor, if symptoms are not improving or worsen. When you get better and the health dept says you can be vaccinated, please get a vaccine and have your eligible family members vaccinated. Return to Emergency Dept, for new, urgent health care needs. All discharge instructions reviewed with patient and/or family. Voiced understanding. Scripts Dexamethasone (Decadron) 6 Mg Tablet 6 MG PO DAILY, #6 TAB 0 Refills Prov: JOSE PEÑALOZA 01/05/21 JOSE PEÑALOZA Jan 05, 2021 15:50
[2021-01-05 15:54] LABS: CLARITY,URINE SL CLOUDY; GLUCOSE, URINE (UA) NEGATIVE (NEGATIVE); KETONES,URINE 2+ (NEGATIVE); LEUKOCYTE ESTERASE ,URINE 1+ (NEGATIVE); NITRITE,URINE NEGATIVE (NEGATIVE); PROTEIN,URINE 1+ (NEGATIVE)
[2021-01-05 15:59] LABS: BASOPHILS % (AUTO) 0 % (0-10); EOSINOPHILS % (AUTO) 0 % (0-10); HEMATOCRIT 41 % (35-52); LYMPHOCYTES # (AUTO) 0.8 X 10^3 (1.0-4.0); LYMPHOCYTES % (AUTO) 8 % (12-44); MEAN CORPUSCULAR HEMOGLOBIN 31 pg (25-34); MEAN CORPUSCULAR HGB CONC 34 g/dL (32-36); MEAN CORPUSCULAR VOLUME 91 fL (80-99); MEAN PLATELET VOLUME 10.1 fL (9.0-12.2); MONOCYTES # (AUTO) 0.7 X 10^3 (0.0-1.0); MONOCYTES % (AUTO) 7 % (0-12); NEUTROPHILS # (AUTO) 8.2 X 10^3 (1.8-7.8); NEUTROPHILS % (AUTO) 83 % (42-75); PLATELET COUNT 257 10^3/uL (130-400); WHITE BLOOD COUNT 9.8 10^3/uL (4.3-11.0)
[2021-01-05 16:03] LABS: BILIRUBIN,URINE 2+ (NEGATIVE); COLOR,URINE DARK YELLOW
[2021-01-05 16:05] LABS: BACTERIA,URINE FEW /HPF; WBC,URINE 0-2 /HPF
[2021-01-05 16:06] LABS: POTASSIUM 3.6 MMOL/L (3.6-5.0)
[2021-01-05 16:07] LABS: CALCIUM 8.6 MG/DL (8.5-10.1)
[2021-01-05 16:08] LABS: TOTAL PROTEIN 8.1 GM/DL (6.4-8.2)
[2021-01-05 16:10] LABS: BILIRUBIN,TOTAL 0.6 MG/DL (0.1-1.0)
[2021-01-05 16:12] LABS: CREATININE SERUM 0.63 MG/DL (0.60-1.30)
[2021-01-05 16:19] LABS: BAND NEUTROPHILS 6 %; BASOPHILS % (MANUAL) 0 %; EOSINOPHILS % (MANUAL) 0 %; LYMPHOCYTES % (MANUAL) 7 %; MONOCYTES % (MANUAL) 8 %; NEUTROPHILS % (MANUAL) 77 %; REACTIVE LYMPHOCYTES 2 %
[2021-01-05 16:20] LABS: RBC MORPH NORMAL
[2021-01-05 16:21] LABS: ERYTHROCYTE SEDIMENTATION RATE 64 MM/HR (0-20)
[2021-01-05] MEDS: NS IV 1000 ML 1,000 ML IV SCH ×2 (16:30→16:59)
--- NOTE | 2021-01-05 16:39 | Diagnostic Imaging Report ---
HISTORY: Covid positive, shortness of breath TECHNIQUE: Frontal view of the chest COMPARISON: None FINDINGS: Lung volumes are mildly low. Patchy airspace opacities are seen throughout the lungs bilaterally, with relative sparing of the apices. There is no pleural effusion or pneumothorax. The cardiac silhouette is normal in size. IMPRESSION: 1. Patchy airspace opacities throughout the lungs bilaterally, consistent with infection. Dictated by: Dictated on workstation # [id number]
[2021-01-05] MEDS ORDERED: NS 100 ML (IVPB) BAG IV ONE (16:45)
[2021-01-05] MEDS ORDERED: IOHEXOL 350 MG/ML 100 ML (OMNIPAQUE 350) VIAL IV ONE (16:45)
[2021-01-05] MEDS ORDERED: HOLD METFORMIN - RECEIVED CONTRAST 20 ML VIAL IV SCH (16:45)
--- NOTE | 2021-01-05 17:12 | Diagnostic Imaging Report ---
EXAMINATION: CT angiography of the chest. TECHNIQUE: Contrast enhanced thin section helical images were obtained through the chest with intravenous contrast timed for the optimal opacification of the arterial structures per CTA protocol. Post-processing, reconstructions and interpretation of angiographic images of the vessels was performed. 3D MIP reconstructions were performed and reviewed. All CT scans use one or more of the following dose optimizing techniques: automated exposure control, MA and/or KvP adjustment based on a patient size and exam type, or iterative reconstruction. HISTORY: Covid positive, shortness of breath and chest pain COMPARISON: Chest radiograph 01/05/2021 FINDINGS: Vascular: There are no filling defects seen within the pulmonary arteries. The thoracic aorta is normal in caliber. Thyroid: The thyroid is normal. Mediastinum: Heart size is normal without significant pericardial effusion. No suspicious lymphadenopathy. Lungs and airways: There are patchy groundglass opacities and consolidation throughout both lungs. No pleural effusion or pneumothorax. The airways are normal. Upper abdomen: The subphrenic structures are normal. Musculoskeletal: No suspicious osseous lesion or compression fracture. IMPRESSION: 1. No findings of pulmonary embolus. 2. Patchy groundglass consolidation throughout both lungs compatible with history of Covid 19 and pneumonia. Dictated by: Dictated on workstation # [id number]
[2021-01-05] MEDS ORDERED: DEXA6TAB6 PO (17:38)
[2021-01-05 18:30] VITALS: BP 117/68
== END 2021-01-05 18:30 | disposition home or self-care (01) ==
LOC: EDUNIT# 13:01 → ER 13:03
DX: U07.1 COVID-19 (principal); R06.00 Dyspnea, unspecified
CPT/HCPCS: 36415; 71045; 71275; 80053; 81000; 83615; 84145; 84703; 85007; 85027; 85379; 85652; 86141; 87636